=== PATIENT | female | born 1975 ===

== ENCOUNTER 2021-05-28 12:15 | Inpatient (IN) | payer OTHER ==
[~2021-05-28] VITALS: Ht 157.5 cm; Wt 81.6 kg
[2021-05-28] MEDS ORDERED: TOPROL XL50 M1 PO (17:12)
[2021-05-28] MEDS ORDERED: SYNTHROID50 MCG PO (17:12)
[2021-05-28] MEDS ORDERED: ATACAND HCT 161 EACH PO (17:13)
[2021-05-28] MEDS ORDERED: PEPC PO (17:13)
[2021-05-30] MEDS ORDERED: BUPROPION XL150 MG (13:05)
[2021-05-30] MEDS ORDERED: PEPCID AC10 MG (13:05)
== END 2021-06-01 13:13 | disposition home or self-care (01) | DRG 743 ==
LOC: OB/GYN 05-30 06:00 → O/R 05-30 06:00 → SURH 05-30 12:15 → OB/GYN 05-30 13:48 → SURH 05-30 14:00 → OB/GYN 06-01 13:13
PROVIDERS: ADMIT Specialist; ATTEND Specialist
PROC: 0UT7FZZ Resection of Bilateral Fallopian Tubes, Via Natural or Artificial Opening With Percutaneous Endoscopic Assistance (ICD-10-PCS; 2021-05-30)
PROC: 0UT9FZZ Resection of Uterus, Via Natural or Artificial Opening With Percutaneous Endoscopic Assistance (ICD-10-PCS; principal; 2021-05-30 14:00)
DX: D25.2 Subserosal leiomyoma of uterus (principal); N83.8 Other noninflammatory disorders of ovary, fallopian tube and broad ligament; N92.1 Excessive and frequent menstruation with irregular cycle; D50.0 Iron deficiency anemia secondary to blood loss (chronic); I10 Essential (primary) hypertension; E03.9 Hypothyroidism, unspecified